=== PATIENT | female | born 1985 | race Caucasian/White ===

== ENCOUNTER 2024-05-17 17:00 | Outpatient (RCR) | payer MEDICAID, SELFPAY ==
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
== END 2024-05-17 19:00 | disposition home or self-care (01) ==
LOC: PT 17:00
PROVIDERS: PCP Family Medicine; Referring Provider Orthopaedic Surgery Sports Medicine; Visit Provider Orthopaedic Surgery Sports Medicine
DX: S42.002D Fracture of unspecified part of left clavicle, subsequent encounter for fracture with routine healing (principal)
CPT/HCPCS: 97110; 97161

== ENCOUNTER → 2024-09-16 | Outpatient (CLI) | payer MEDICAID, SELFPAY ==
--- NOTE | 2024-09-16 11:11 | CT_ITS ---
PROCEDURE: EXTREMITY UPPER WITHOUT CONTRA 09/16/2024 REASON FOR EXAM: ASSESS FOR UNION TECHNIQUE: Axial CT images of the left clavicle obtained without intravenous contrast. Coronal and Sagittal reconstruction series were provided. One or more dose reduction techniques were used (e.g., Automated exposure control, adjustment of the mA and/or kV according to patient size, use of iterative reconstruction technique RADIATION DOSE SUMMARY: DLP: 395.77 mGycm COMPARISON: August 24, 2024 x-ray FINDINGS: Bones: There is a chronic appearing healed fracture of the distal 3rd of the clavicle which appears well corticated. The AC joint is aligned. The sternum manubrial articulation is aligned. Adjacent soft tissues are unremarkable. CT/Extremity Upper without Contra IMPRESSION: The left clavicle fracture appears well corticated. Reading Location: [facility]
== END | disposition home or self-care (01) ==
LOC: CT 11:11
PROVIDERS: PCP Family Medicine; Referring Provider Orthopaedic Surgery Sports Medicine; Visit Provider Orthopaedic Surgery Sports Medicine
DX: S42.002A Fracture of unspecified part of left clavicle, initial encounter for closed fracture (principal)
CPT/HCPCS: 73200